=== PATIENT | male | born 1950 | race Caucasian/White ===

== ENCOUNTER → 2019-10-08 18:29 | Outpatient (CLI) | payer MEDICARE, SELFPAY ==
[2019-10-08 19:13] LABS: Chloride 102 mmol/L (98-107); Potassium 4.3 mmoL/L (3.5-5.1); Sodium 141 mmol/L (136-145)
[2019-10-08 19:16] LABS: Alanine Aminotransferase 25 U/L (12-78); Albumin Level 4.2 g/dl (3.5-5.0); Albumin/Globulin Ratio 1.6 (1.1-1.8); Alkaline Phosphatase 42 U/L (38-126); Anion Gap 15.3 mEq/L (5-15); Aspartate Amino Transferase 31 U/L (17-59); Bilirubin,Total 0.5 mg/dl (0.2-1.3); Blood Urea Nitrogen 24 mg/dl (9-20); Carbon Dioxide 28 mmol/L (22.0-30.0); Cholesterol 194 mg/dl (140-200); Estimated Glomerular Filt Rate 67 ml/min (>60); GFR (African American) 81 ML/MIN (>60); Globulin 2.6 g/dL (1.3-3.2); Total Protein,Serum 6.8 g/dl (6.3-8.2); Triglycerides 154 mg/dl (30-150); VLDL Cholesterol 31 mg/dL (0-40)
[2019-10-08 19:17] LABS: Chol/HDL Ratio 3.5 (1-3.5); HDL Cholesterol 55 mg/dl (40-60)
[2019-10-08 19:22] LABS: Calcium 9.2 mg/dl (8.4-10.2)
[2019-10-08 19:34] LABS: T4 (Thyroxine) 7.6 ug/dl (5.53-11.0)
[2019-10-08 19:48] LABS: Thyroid Stimulating Hormone 1.62 uIU/mL (0.465-4.68)
[2019-10-08 19:57] LABS: Glucose 119 mg/dl (74-100)
[2019-10-08 20:09] LABS: Basophils % 0.6 % (0.1-2.0); Eosinophils # 0.4 K/mm3 (0.0-0.4); Eosinophils % 6.8 % (0.1-12.0); Hematocrit 42.2 % (42.0-52.0); Hemoglobin 14.7 g/dL (14.1-18.0); Lymphocytes # 0.9 K/mm3 (0.7-4.5); Mean Corpuscular HGB Conc 34.7 g/dL (31.8-35.4); Mean Corpuscular Hemoglobin 31.7 pg (27.0-31.2); Mean Corpuscular Volume 91.3 fl (80-94); Mean Platelet Volume 9.5 fl (7.4-10.4); Monocytes # 0.3 K/mm3 (0.1-1.0); Monocytes % 5.8 % (1.7-9.3); Neutrophils # 3.8 K/mm3 (1.8-7.8); Neutrophils % 69.8 % (37.0-80.0); Platelet Count 166 K/mm3 (142-424); Red Blood Count 4.63 M/mm3 (4.60-6.20); Red Cell Distribution Width 14.4 % (11.5-17.5); White Blood Count 5.4 K/mm3 (4.8-10.8)
[2019-10-15 13:29] LABS: 1,25 Dihydroxy Vitamin D 44 pg/mL (.); 1,25-Dihydroxy, Vitamin D-2 <10 pg/mL (.); 1,25-Dihydroxy, Vitamin D-3 44 pg/mL (.)
== END ==
PROVIDERS: Visit Provider Emergency Medicine
DX: I10 Essential (primary) hypertension (principal); Z79.899 Other long term (current) drug therapy
CPT/HCPCS: 80053; 80061; 82652; 84436; 84443; 85025

== ENCOUNTER → 2019-10-14 17:39 | Outpatient (CLI) | payer MEDICARE, SELFPAY ==
[2019-10-14 19:49] LABS: Hemoglobin A1C 6.5 % (4.0-6.0)
== END ==
PROVIDERS: Visit Provider Emergency Medicine
DX: R73.9 Hyperglycemia, unspecified (principal)
CPT/HCPCS: 83036

== ENCOUNTER → 2020-02-03 19:13 | Outpatient (CLI) | payer MEDICARE, SELFPAY ==
[2020-02-03 20:47] LABS: Basophils % 0.8 % (0.1-2.0); Eosinophils # 0.2 K/mm3 (0.0-0.4); Eosinophils % 5.1 % (0.1-12.0); Hemoglobin 14.4 g/dL (14.1-18.0); Lymphocytes # 0.9 K/mm3 (0.7-4.5); Lymphocytes % 18.5 % (10-50); Mean Corpuscular HGB Conc 32.8 g/dL (31.8-35.4); Mean Corpuscular Hemoglobin 30.7 pg (27.0-31.2); Mean Corpuscular Volume 93.6 fl (80-94); Mean Platelet Volume 9.7 fl (7.4-10.4); Monocytes # 0.4 K/mm3 (0.1-1.0); Monocytes % 7.7 % (1.7-9.3); Neutrophils # 3.1 K/mm3 (1.8-7.8); Neutrophils % 67.7 % (37.0-80.0); Platelet Count 160 K/mm3 (142-424); Red Cell Distribution Width 13.8 % (11.5-17.5); White Blood Count 4.6 K/mm3 (4.8-10.8)
[2020-02-03 20:50] LABS: Alanine Aminotransferase 20 U/L (12-78); Albumin Level 4.1 g/dl (3.5-5.0); Albumin/Globulin Ratio 1.5 (1.1-1.8); Alkaline Phosphatase 46 U/L (38-126); Anion Gap 12.4 mEq/L (5-15); Aspartate Amino Transferase 30 U/L (17-59); Bilirubin,Total 0.7 mg/dl (0.2-1.3); Blood Urea Nitrogen 25 mg/dl (9-20); Calcium 9.3 mg/dl (8.4-10.2); Carbon Dioxide 27 mmol/L (22.0-30.0); Chloride 105 mmol/L (98-107); Estimated Glomerular Filt Rate 55 ml/min (>60); GFR (African American) 67 ML/MIN (>60); Globulin 2.7 g/dL (1.3-3.2); Glucose 122 mg/dl (74-100); Potassium 4.4 mmoL/L (3.5-5.1); Sodium 140 mmol/L (136-145); Total Protein,Serum 6.8 g/dl (6.3-8.2)
== END ==
PROVIDERS: Visit Provider Emergency Medicine
DX: I10 Essential (primary) hypertension (principal); N19 Unspecified kidney failure
CPT/HCPCS: 80053; 85025

== ENCOUNTER → 2020-06-01 13:36 | Outpatient (CLI) | payer MEDICARE, SELFPAY ==
[2020-06-01 13:53] LABS: Chloride 108 mmol/L (98-107); Potassium 4.5 mmoL/L (3.5-5.1); Sodium 141 mmol/L (136-145)
[2020-06-01 13:56] LABS: Anion Gap 13.5 mEq/L (5-15); Blood Urea Nitrogen 22 mg/dl (9-20); Calcium 9.4 mg/dl (8.4-10.2); Carbon Dioxide 24 mmol/L (22.0-30.0); Estimated Glomerular Filt Rate 75 ml/min (>60); GFR (African American) 90 ML/MIN (>60); Glucose 164 mg/dl (74-100)
== END ==
PROVIDERS: Visit Provider Emergency Medicine
DX: N19 Unspecified kidney failure (principal)
CPT/HCPCS: 80048

== ENCOUNTER → 2020-10-11 06:31 | Outpatient (CLI) | payer MEDICARE, SELFPAY ==
--- NOTE | 2020-10-11 06:32 | CA_ITS ---
APPROVED REPORT Exam: Pharmacologic Technologist: Ruth Mera, Ht: 5 ft 10 in Wt: 222 lbs BSA: 2.18 m2 HR: 51 bpm BP: 130/62 mmHg Medical History Medications: Hydralazine,,,,, Aspirin,,,,, Vitamin B12,,,,, Carvedilol,,,,, TAMSULOSIN,,,,, NiACIN,,,,, FeNOfibrate,,,,, Furosemide,,,,, Potassium Chloride ER,,,,, Amlodipine-Benazepril,,,,, Clonidine HCI,,,,, Stress Test Details Test: LEXISCAN HR Resting HR: 45 bpm Max Heart Rate (APMHR): 153.963288 bpm Max HR Achieved: 76 bpm Target HR (85% APMHR): 130.609006 bpm % of APMHR: 49.67 Recovery HR: 55 bpm BP Resting BP: 130/62 mmHg Max BP: 153/66 mmHg Recovery BP: 110.0/78.0 mmHg ECG Clinical Exercise duration: 04:07 min Highest Stage Achieved: Exercise capacity: 1.0 METs Stress ECG Conclusion Symptoms: SOA noted during Lexiscan infusion. No CP. Arrhythmias/Ectopy: PVC's noted, pretest and during infusion and post test. No v. tach. ST-T Changes: <1.5mm St segment changes. Electronically signed by : Mike Strong, 10/11/2020 18:25:27
--- NOTE | 2020-10-11 06:32 | CA_ITS ---
APPROVED REPORT EXAM: Comprehensive 2D, Doppler, and color-flow Echocardiogram [facility] Consultant: Jami Dubon RT(R) Ht: 5 ft 9 in Wt: 225lbs BSA: 2.17 BP: 111/70 mmHg Indications: SOA, CP, CHF, CAD, HTN, JUAREZ, hyperlipidemia, bradycardia, Abn EKG 2D Dimensions LVOT 2.50 cm (M/F) 1.5-2.5 LVEF (Reyes's) 45.70 % M: 52 - 72 LV Volume 132.90 mL M: 62 - 150 LV Volume Index 61.24 mL/m2 M: 34 - 74 LA Volume 53.90 mL LA Volume Index 24.83 mL/m2 (M/F) 16-34 M-Mode Dimensions RVDd 2.82 cm (0.9-2.6) LA Diam 4.38 cm (1.9-4.0) LVDd 5.96 cm (3.5-5.7) Ao Diam 2.73 cm (2.0-3.7) LVDs 4.41 cm (3.5-5.7) IVSd 0.99 cm (0.6-1.1) PWd 0.99 cm (0.6-1.1) EF (Teich) 50.30% FS 26.00% EDV (Teich) 177.30 mL ESV (Teich) 88.20 mL LV Diastology E Decel Time 207.00 (160-240 msec) E/A Ratio 1.2 MED E' 8.40 (< 7 cm/sec) E'/MED E' Ratio 12.43 (>14) LAT E' 9.00 (<10 cm/sec) E/LAT E' Ratio 11.60 (>14) Mitral Valve MV E Max Edgar. 104.00 (40-130 cm/s) MV A Velocity 88.00 (40-130 cm/s) E/A Ratio 1.19 MV Decel. Time 207.00 (160-240 ms) MV PHT 61.00 ms Left Ventricle Left atrium is mildly enlarged, left ventricle is normal size, mild concentric left ventricular hypertrophy, visually estimated ejection fraction 55% with no regional wall motion abnormality, diastolic parameters are inconclusive. Right Ventricle Right atrium and right ventricle are normal size and contractility. Aortic Valve Aortic valve is thickened and calcified without aortic stenosis or aortic insufficiency. Mitral Valve Mitral valve grossly normal, there is trace mitral regurgitation. Tricuspid Valve Tricuspid grossly normal, there is trace tricuspid regurgitation, tricuspid regurgitation jet velocity is inadequate for calculation of the right ventricular systolic pressure. Pulmonic Valve Pulmonic valve is poorly visualized. Great Vessels Aortic root is normal size. Pericardium No significant pericardial effusion noted. Conclusion 1. Mildly enlarged left atrium, normal left ventricular size, mild concentric left ventricular hypertrophy, visually estimated ejection fraction 55% with no regional wall motion abnormality, diastolic parameters are inconclusive. 2. Thickened and calcified aortic valve without aortic stenosis or aortic insufficiency. 3. Trace mitral and tricuspid regurgitation. 4. No significant pericardial effusion noted. Electronically signed by : Mike Strong, 10/11/2020 21:57:07
--- NOTE | 2020-10-11 06:32 | CA_ITS ---
APPROVED REPORT Oval Or Circular Glass Cutter: CAROL Laterality: Bilateral Study Quality: Adequate Indications: hx of enarderectomy Risk Factors Hypertension: Hyperlipidemia Left endarterectomy 2-3 years ago, SOB, dizziness Doppler Spectral Velocity Analysis ECA (R) 95.80/5.20 cm/s ECA (L) 124.20/10.30 cm/s dICA (R) 101.00/26.90 cm/s dICA (L) 80.90/28.90 cm/s Gallo (R) 77.80/24.70 cm/s Gallo (L) 105.40/31.70 cm/s pICA (R) 90.50/15.70 cm/s pICA (L) 44.10/14.20 cm/s dCCA (R) 90.50/14.40 cm/s dCCA (L) 99.40/22.50 cm/s pCCA (R) 85.50/13.90 cm/s pCCA (L) 144.40/28.90 cm/s Vert (R) 42.40/11.60 cm/s Vert (L) 49.40/16.70 cm/s ICA/CCA 1.12 ICA/CCA 1.06 Findings Duplex evaluation demonstrates stenosis of the right proximal internal carotid artery <20%. Duplex evaluation demonstrates stenosis of the left proximal internal carotid artery <20%. Duplex evaluation demonstrates antegrade flow of the bilateral vertebral arteries. Cardiac arrythmia noted. Conclusion Duplex evaluation demonstrates stenosis of the right proximal internal carotid artery <20%. Duplex evaluation demonstrates stenosis of the left proximal internal carotid artery <20%. Duplex evaluation demonstrates antegrade flow of the bilateral vertebral arteries. Cardiac arrythmia noted. Electronically signed by : Shelia Christiansno, 10/11/2020 16:57:31
--- NOTE | 2020-10-11 06:32 | NM_ITS ---
APPROVED REPORT Exam: Nuclear Stress Test Indication: short of breath..fatigue Patient Location: Outpatient Stress Tech: Ruth Mera [place] Tech:Chelo WittMARÍA RT(R)(N) Ht: 5 ft 9 in Wt: 225 lbs HR: 51 bpm BP: 130/62 mmHg BSA: 2.17 m2 BMI: 33.2 History: short of breath..fatigue Procedure: Patient received a 0.4 mg of intravenous Lexiscan, resting heart rate 51 bpm, resting blood pressure 130/62 mmHg, with Lexiscan maximum heart rate achived was 69 bpm which is Less than 85 % of the maximum predicted heart rate and blood pressure was 124/102 mmHg. With Lexiscan, patient denied any complaint of chest pain. Electrocardiogram Resting electrocardiogram showed sinus rhythm premature ventricular complexes, with Lexiscan there is less than 1.[address] segment depression noted from the baseline EKG. The EKG portion of the Lexiscan is nondiagnostic. Cardiac Stress and Resting SPECT Images: Cardiac Stress and Resting SPECT images were obtained using technetium 99m Myoview 31.8 mCi stress and 10.11 mCi at rest. Gated SPECT for analysis of segmental wall motion and calculation of the ejection fraction also done. Prone images were also obtained. Cardiac stress and resting SPECT images show uniform myocardial activity without segmental perfusion abnormality, computer derived ejection fraction is 44% with no regional wall motion abnormality, however there were frequent premature ventricular complexes present throughout the study that may underestimate the ejection fraction by gated SPECT. Conclusion: 1. The EKG portion of the Lexiscan is nondiagnostic. 2. No scintigraphic evidence of reversible ischemia seen, computer derived ejection fraction is 44% with no regional wall motion abnormality, however there is frequent premature ventricular complexes present throughout the study that may underestimate the ejection fraction. 3. Likely normal Lexiscan Myoview study. Electronically signed by : Mike Strong, 10/11/2020 18:30:01
== END ==
PROVIDERS: PCP Emergency Medicine; Visit Provider Urology
DX: R06.00 Dyspnea, unspecified; I25.10 Atherosclerotic heart disease of native coronary artery without angina pectoris; I49.3 Ventricular premature depolarization; R94.31 Abnormal electrocardiogram [ECG] [EKG]; I65.23 Occlusion and stenosis of bilateral carotid arteries; I11.9 Hypertensive heart disease without heart failure; E78.5 Hyperlipidemia, unspecified; R53.83 Other fatigue; Z72.0 Tobacco use; Z95.5 Presence of coronary angioplasty implant and graft; Z98.890 Other specified postprocedural states
CPT/HCPCS: 78452; 93017; 93306; 93880; A9502; J2785

== ENCOUNTER → 2020-10-18 10:21 | Outpatient (CLI) | payer MEDICARE, SELFPAY ==
[2020-10-18 11:56] LABS: Blood Urea Nitrogen 27 mg/dl (9-20); Estimated Glomerular Filt Rate 67 ml/min (>60); GFR (African American) 81 ML/MIN (>60)
== END ==
PROVIDERS: Visit Provider Surgery
DX: R10.10 Upper abdominal pain, unspecified (principal); Z01.812 Encounter for preprocedural laboratory examination
CPT/HCPCS: 36415; 82565; 84520

== ENCOUNTER → 2020-10-25 09:14 | Outpatient (CLI) | payer MEDICARE, SELFPAY ==
--- NOTE | 2020-10-25 09:14 | CT_ITS ---
PROCEDURE: CT ABDOMEN PELVIS WO CON CLINICAL INDICATION: possible hernia/upper abd pain COMPARISON: No exams were available for comparison TECHNIQUE: Axial images obtained with sagittal and coronal reformats. All CT scans at the facility use one or more dose reduction, viz: automated exposure control, ma/kV adjustment per patient size (including targeted exams where dose is matched to indication, i.e. head), or iterative reconstruction technique. FINDINGS: LOWER THORAX: Coronary artery calcification ABDOMEN & PELVIS: There is a subtle hypodensity in the hepatic dome series 3, image 20 at 7 x 2 mm nonspecific too small to categorize. Liver is otherwise unremarkable. The gallbladder, spleen, left adrenal gland, and pancreas have an unremarkable appearance. 1.8 cm right adrenal nodule is present consistent with an adenoma. There are bilateral renal cysts the largest on the left at 4 cm. No renal or ureteral calculi. No intestinal obstruction or free air. Unremarkable appearing appendix. No evidence of appendicitis or diverticulitis There is a small umbilical hernia containing fat. There is a small central ventral abdominal wall hernia containing fat 8 cm cephalad to the umbilicus. There is mild thickening of the urinary bladder wall nonspecific. Prostate is 4.9 cm slightly enlarged. No acute bony anomalies. IMPRESSION: There is a small ventral abdominal wall hernia 8 cm cephalad to the umbilicus and there is a small umbilical hernia. Both contain fat. Other nonacute findings as described above. Dictated by: Isidro Foote MD 10/25/2020 17:39 Isidro Foote MD in [place] 10/25/2020 17:39
== END ==
PROVIDERS: PCP Emergency Medicine; Visit Provider Surgery
DX: R10.10 Upper abdominal pain, unspecified (principal)
CPT/HCPCS: 74176

== ENCOUNTER → 2021-10-05 09:52 | Outpatient (CLI) | payer MEDICARE, SELFPAY ==
--- NOTE | 2021-10-05 09:53 | CA_ITS ---
FINAL REPORT CLINICAL HISTORY: yennifer hx of Left endarterectomy FINDINGS: An ultrasound of the carotid arteries was performed. Duplex Doppler evaluation with spectral analysis was performed. The peak systolic velocity of the right common carotid artery is 79 cm/s. The peak systolic velocity of the right internal carotid artery is 103 cm/s and end diastolic velocity 21 cm/s. A small amount of plaque is present. The right external carotid artery is patent. The right vertebral artery is patent with antegrade flow. The peak systolic velocity of the left common carotid artery is 132 cm/s. The peak systolic velocity of the left internal carotid artery is 95 cm/s and end diastolic velocity 32 cm/s. A small amount of plaque is present. The left external carotid artery is patent. The left vertebral artery is patent with antegrade flow. IMPRESSION: Less than 50% bilateral carotid stenoses. Bilateral patent vertebral arteries with antegrade flow. Reviewed, Interpreted and Dictated by Beto Urbano MD Transcribed by Elijah Marie Authenticated and [facility]
== END ==
PROVIDERS: PCP Emergency Medicine; Visit Provider Nurse Practitioner Family
DX: I65.23 Occlusion and stenosis of bilateral carotid arteries; R00.1 Bradycardia, unspecified; I25.10 Atherosclerotic heart disease of native coronary artery without angina pectoris; I10 Essential (primary) hypertension; E78.5 Hyperlipidemia, unspecified; E66.9 Obesity, unspecified; R94.31 Abnormal electrocardiogram [ECG] [EKG]; Z95.5 Presence of coronary angioplasty implant and graft; Z98.890 Other specified postprocedural states; Z68.31 Body mass index [BMI] 31.0-31.9, adult
CPT/HCPCS: 93880

== ENCOUNTER → 2021-10-07 14:06 | Outpatient (CLI) | payer MEDICARE, SELFPAY ==
[2021-10-07 13:19] LABS: Basophils # 0.1 K/mm3 (0-0.2); Eosinophils # 0.3 K/mm3 (0.0-0.4); Eosinophils % 4.7 % (0.1-12.0); Hematocrit 41.2 % (42.0-52.0); Hemoglobin 13.7 g/dL (14.1-18.0); Lymphocytes # 0.8 K/mm3 (0.7-4.5); Lymphocytes % 14.9 % (10-50); Mean Corpuscular HGB Conc 33.1 g/dL (31.8-35.4); Mean Corpuscular Hemoglobin 31.4 pg (27.0-31.2); Mean Corpuscular Volume 94.9 fl (80-94); Monocytes # 0.3 K/mm3 (0.1-1.0); Monocytes % 5.9 % (1.7-9.3); Neutrophils # 3.9 K/mm3 (1.8-7.8); Neutrophils % 73.5 % (37.0-80.0); Platelet Count 141 K/mm3 (142-424); Red Blood Count 4.35 M/mm3 (4.60-6.20); Red Cell Distribution Width 14.6 % (11.5-17.5); White Blood Count 5.4 K/mm3 (4.8-10.8)
[2021-10-07 13:23] LABS: Alanine Aminotransferase 24 U/L (12-78); Albumin Level 3.8 g/dl (3.5-5.0); Albumin/Globulin Ratio 1.5 (1.1-1.8); Alkaline Phosphatase 39 U/L (38-126); Anion Gap 10.4 mEq/L (5-15); Aspartate Amino Transferase 34 U/L (17-59); Bilirubin,Total 0.5 mg/dl (0.2-1.3); Blood Urea Nitrogen 20 mg/dl (9-20); Carbon Dioxide 27 mmol/L (22.0-30.0); Chloride 106 mmol/L (98-107); Estimated Glomerular Filt Rate 67 ml/min (>60); GFR (African American) 81 ML/MIN (>60); Globulin 2.5 g/dL (1.3-3.2); Glucose 147 mg/dl (74-100); Potassium 4.4 mmoL/L (3.5-5.1); Sodium 139 mmol/L (136-145); Total Protein,Serum 6.3 g/dl (6.3-8.2)
[2021-10-07 13:41] LABS: Free T4 (Free Thyroxine) 1.43 ng/dl (0.78-2.19)
[2021-10-07 13:54] LABS: Prostate Specific Ag Screen 0.3 ng/ml (0.0-4.0)
== END ==
PROVIDERS: PCP Emergency Medicine; Visit Provider Emergency Medicine
DX: I10 Essential (primary) hypertension (principal); E55.9 Vitamin D deficiency, unspecified; R53.83 Other fatigue; E66.9 Obesity, unspecified; Z68.31 Body mass index [BMI] 31.0-31.9, adult; Z12.5 Encounter for screening for malignant neoplasm of prostate
CPT/HCPCS: 80053; 82306; 84439; 84443; 85025; G0103

== ENCOUNTER → 2021-10-27 06:22 | Outpatient (CLI) | payer MEDICARE, SELFPAY ==
[2021-10-27 15:21] LABS: Basophils # 0.1 K/mm3 (0-0.2); Basophils % 1.1 % (0.1-2.0); Eosinophils # 0.3 K/mm3 (0.0-0.4); Eosinophils % 6.6 % (0.1-12.0); Hematocrit 41.7 % (42.0-52.0); Hemoglobin 13.6 g/dL (14.1-18.0); Lymphocytes % 20.9 % (10-50); Mean Corpuscular HGB Conc 32.7 g/dL (31.8-35.4); Mean Corpuscular Hemoglobin 31.5 pg (27.0-31.2); Mean Corpuscular Volume 96.2 fl (80-94); Mean Platelet Volume 10.7 fl (7.4-10.4); Monocytes # 0.4 K/mm3 (0.1-1.0); Monocytes % 7.2 % (1.7-9.3); Neutrophils # 3.1 K/mm3 (1.8-7.8); Neutrophils % 64.2 % (37.0-80.0); Platelet Count 146 K/mm3 (142-424); Red Blood Count 4.34 M/mm3 (4.60-6.20); Red Cell Distribution Width 14.3 % (11.5-17.5); White Blood Count 4.9 K/mm3 (4.8-10.8)
[2021-10-27 15:45] LABS: Hemoglobin A1C 6.5 % (4.0-6.0)
[2021-10-27 16:10] LABS: Iron 92 ug/dL (49-181)
[2021-10-27 16:19] LABS: Total Iron Binding Capacity 307 ug/dL (261-462)
[2021-10-29 15:13] LABS: Peripheral Smear Review Scanned Result
== END ==
PROVIDERS: PCP Physician Assistant; Visit Provider Physician Assistant
DX: D64.9 Anemia, unspecified (principal); R73.09 Other abnormal glucose
CPT/HCPCS: 83036; 83540; 83550; 85025

== ENCOUNTER → 2022-01-23 10:12 | Outpatient (CLI) | payer MEDICARE, SELFPAY ==
[2022-01-23 11:36] LABS: Chloride 99 mmol/L (98-107); Potassium 4.6 mmoL/L (3.5-5.1); Sodium 140 mmol/L (136-145)
[2022-01-23 11:39] LABS: Alanine Aminotransferase 24 U/L (12-78); Albumin Level 4.2 g/dl (3.5-5.0); Alkaline Phosphatase 46 U/L (38-126); Anion Gap 13.6 mEq/L (5-15); Aspartate Amino Transferase 31 U/L (17-59); Bilirubin,Direct 0.1 mg/dl (0.0-0.4); Bilirubin,Indirect 0.4 mg/dL (0.0-0.9); Bilirubin,Total 0.5 mg/dl (0.2-1.3); Bilirubin,Unconjugated 0.4 mg/dL (0.0-1.1); Blood Urea Nitrogen 27 mg/dl (9-20); Calcium 9.1 mg/dl (8.4-10.2); Carbon Dioxide 32 mmol/L (22.0-30.0); Cholesterol 192 mg/dl (140-200); Estimated Glomerular Filt Rate 55 ml/min (>60); GFR (African American) 66 ML/MIN (>60); Glucose 155 mg/dl (74-100); Total Protein,Serum 6.6 g/dl (6.3-8.2); Triglycerides 132 mg/dl (30-150); VLDL Cholesterol 26 mg/dL (0-40)
[2022-01-23 11:40] LABS: Chol/HDL Ratio 4.3 (1-3.5); HDL Cholesterol 45 mg/dl (40-60)
[2022-01-23 11:51] LABS: Direct LDL Cholesterol 110.94 mg/dL (100-129)
== END ==
PROVIDERS: PCP Emergency Medicine; Visit Provider Physician Assistant
DX: E78.2 Mixed hyperlipidemia (principal); E78.5 Hyperlipidemia, unspecified; I10 Essential (primary) hypertension; I65.23 Occlusion and stenosis of bilateral carotid arteries; I77.9 Disorder of arteries and arterioles, unspecified; R00.1 Bradycardia, unspecified; Z95.5 Presence of coronary angioplasty implant and graft; Z98.890 Other specified postprocedural states
CPT/HCPCS: 36415; 80048; 80061; 80076

== ENCOUNTER → 2022-10-06 08:42 | Outpatient (CLI) | payer MEDICARE, SELFPAY ==
--- NOTE | 2022-10-06 09:02 | XR_ITS ---
FINAL REPORT CLINICAL HISTORY: hip pain, arthritis FINDINGS: LEFT HIP SERIES A single view of the pelvis and two views of the left hip were obtained. There is no acute fracture or dislocation. There is mild degenerative change of bilateral hips. There is mild degenerative change of the lower lumbar spine. There is no soft tissue abnormality. IMPRESSION: No acute bony abnormality. Mild degenerative changes as stated above. Reviewed, Interpreted and Dictated by Félix Remy III, MD Transcribed by Dominga Hamilton Authenticated and [facility]
[2022-10-06 09:50] LABS: Alanine Aminotransferase 30 U/L (12-78); Alkaline Phosphatase 38 U/L (38-126); Aspartate Amino Transferase 34 U/L (17-59); Bilirubin,Direct 0.2 mg/dl (0.0-0.4); Bilirubin,Indirect 0.4 mg/dL (0.0-0.9); Bilirubin,Total 0.6 mg/dl (0.2-1.3); Bilirubin,Unconjugated 0.4 mg/dL (0.0-1.1); Cholesterol 113 mg/dl (140-200); Triglycerides 98 mg/dl (30-150); VLDL Cholesterol 20 mg/dL (0-40)
[2022-10-06 09:51] LABS: Albumin Level 3.8 g/dl (3.5-5.0); Chol/HDL Ratio 2.1 (1-3.5); HDL Cholesterol 54 mg/dl (40-60); Total Protein,Serum 6.3 g/dl (6.3-8.2)
[2022-10-06 10:02] LABS: Direct LDL Cholesterol 46.41 mg/dL (100-129)
== END ==
PROVIDERS: PCP Emergency Medicine; Visit Provider Physician Assistant
DX: E78.2 Mixed hyperlipidemia (principal); I25.10 Atherosclerotic heart disease of native coronary artery without angina pectoris; I65.23 Occlusion and stenosis of bilateral carotid arteries; R00.1 Bradycardia, unspecified; Z95.5 Presence of coronary angioplasty implant and graft; Z98.890 Other specified postprocedural states; M25.552 Pain in left hip
CPT/HCPCS: 73502; 80061; 80076

== ENCOUNTER → 2022-10-31 13:05 | Outpatient (CLI) | payer MEDICARE, SELFPAY ==
[2022-10-31 12:24] LABS: Anion Gap 11.9 mEq/L (5-15); Blood Urea Nitrogen 24 mg/dl (9-20); Calcium 9.3 mg/dl (8.4-10.2); Carbon Dioxide 32 mmol/L (22.0-30.0); Chloride 103 mmol/L (98-107); Estimated Glomerular Filt Rate 55 ml/min (>60); GFR (African American) 66 ML/MIN (>60); Glucose 174 mg/dl (74-100); Potassium 3.9 mmoL/L (3.5-5.1); Sodium 143 mmol/L (136-145)
[2022-10-31 12:36] LABS: Basophils % 0.9 % (0.1-2.0); Eosinophils # 0.3 K/mm3 (0.0-0.4); Eosinophils % 6.1 % (0.1-12.0); Hematocrit 42.2 % (42.0-52.0); Hemoglobin 13.6 g/dL (14.1-18.0); Lymphocytes # 0.9 K/mm3 (0.7-4.5); Lymphocytes % 17.8 % (10-50); Mean Corpuscular HGB Conc 32.1 g/dL (31.8-35.4); Mean Corpuscular Hemoglobin 29.7 pg (27.0-31.2); Mean Corpuscular Volume 92.6 fl (80-94); Mean Platelet Volume 9.7 fl (7.4-10.4); Monocytes # 0.3 K/mm3 (0.1-1.0); Monocytes % 6.1 % (1.7-9.3); Neutrophils # 3.5 K/mm3 (1.8-7.8); Neutrophils % 69.1 % (37.0-80.0); Platelet Count 127 K/mm3 (142-424); Red Blood Count 4.56 M/mm3 (4.60-6.20); Red Cell Distribution Width 13.9 % (11.5-17.5); White Blood Count 5.1 K/mm3 (4.8-10.8)
[2022-10-31 12:54] LABS: Prostate Specific Ag Screen 0.5 ng/ml (0.0-4.0); Thyroid Stimulating Hormone 2.39 uIU/mL (0.465-4.68)
== END ==
PROVIDERS: PCP Emergency Medicine; Visit Provider Emergency Medicine
DX: E78.5 Hyperlipidemia, unspecified (principal); I25.10 Atherosclerotic heart disease of native coronary artery without angina pectoris; I10 Essential (primary) hypertension; Z12.5 Encounter for screening for malignant neoplasm of prostate
CPT/HCPCS: 80048; 84443; 85025; G0103

== ENCOUNTER → 2022-11-07 06:36 | Outpatient (CLI) | payer MEDICARE, SELFPAY ==
--- NOTE | 2022-11-07 | CA_ITS ---
APPROVED REPORT Exam: Pharmacologic Technologist: Ruth Spangler, Ht: 5 ft 10 in Wt: 216 lbs BSA: 2.16 m2 HR: 46 bpm BP: 176/63 mmHg Rhythm: NSR Medical History Medications: Aspirin,,,,, Gabapentin,,,,, HCTZ,,,,, Carvedilol,,,,, Crestor,,,,, Benazepril,,,,, TAMSULOSIN,,,,, Tramadol,,,,, NiACIN,,,,, FeNOfibrate,,,,, Furosemide,,,,, Potassium Chloride ER,,,,, Stress Test Details Test: LEXISCAN Reason for pharmacologic stress test: physical limitation. HR Resting HR: 44 bpm Max Heart Rate (APMHR): 151 bpm Max HR Achieved: 68 bpm Target HR (85% APMHR): 128 bpm % of APMHR: 45 Recovery HR: 54 bpm BP Resting BP: 176.0/63.0 mmHg Max BP: 184.0/55.0 mmHg Recovery BP: 149.0/63.0 mmHg ECG Resting ECG: Sinus bradycardia, first degree AV Block Stress ECG: No change Arrhythmia: PACs, PVCs Clinical Exercise duration: 04:00 min Highest Stage Achieved: Exercise capacity: 1.0 METs Stress ECG Conclusion Symptoms: Nausea Arrhythmias/Ectopy: PVC's/PAC's ST-T Changes: Unremarkable Lexiscan stress test. Myoview images are reported separately. Conclusion: non-diagnostic, patient did not meet target heart rate. Test Summary REST . . . . . . . Resting REST 07:14 . . 44 . 176/ 63 . . Stage 1 . . . . . . . Myoview Injected Stage 1 . . . . . . . Stage held Stage 1 01:00 . . 60 . . . . Stage 1 02:00 . . 56 . . . . Stage 1 03:00 . . 56 . 184/ 55 . . Stage 1 . . . . . . . Stage resumed Stage 1 03:11 . . 59 . 184/ 55 . . Stage 2 00:49 . . 62 . . . Stop exercise at 04:00 RECOVERY 01:00 . . 60 . 130/ 51 . . RECOVERY 02:00 . . 61 . 130/ 51 . . RECOVERY 03:00 . . 55 . 138/ 52 . . RECOVERY 04:00 . . 53 . 138/ 52 . . RECOVERY 04:17 . . 57 . 149/ 63 . . Electronically signed by : Vonda Valverde, 11/07/2022 18:46:21
--- NOTE | 2022-11-07 06:41 | NM_ITS ---
APPROVED REPORT Exam: Nuclear Stress Test Indication: CAD, 1 STENT, HTN, HYPERLIPIDEMIA, ANGINA, SOB, FATIGUE Patient Location: Outpatient Stress Tech: Ruth Mera [place] Tech:MARÍA Vera RT (R)(N)(M) Ht: 5 ft 10 in Wt: 215 lbs HR: 46 bpm BP: 176/63 mmHg BSA: 2.15 m2 Rhythm: Atrial Fibrillation TID: 0.92 BMI: 30.8 History: CAD, 1 STENT, HTN, HYPERLIPIDEMIA, ANGINA, SOB, FATIGUE Procedure: Patient received 0.4 mg of intravenous Lexiscan, resting heart rate 46 bpm, resting blood pressure 176/63 mmHg, with Lexiscan maximum heart rate achieved was 58 bpm which is % of the maximum predicted heart rate and blood pressure was 184/55 mmHg. With Lexiscan, patient denied any complaint of chest pain. Cardiac Stress and Resting SPECT Images: Cardiac Stress and Resting SPECT images were obtained using technetium 99m Myoview 30.2 mCi stress and 10.23 mCi at rest. Resting and stress imaging in supine and prone positions demonstrate a large-sized, moderate, fixed perfusion defect in the entire inferior and mid to distal inferoseptal LV lawrence, involving the inferoapical region. Gated imaging demonstrates mild reduction in global LV systolic function. There is moderate hypokinesis in the inferior and inferoseptal LV lawrence. LVEF is calculated at 48%. Conclusion: Large-sized, moderate, fixed perfusion defect in the entire inferior and mid to distal inferoseptal LV lawrence, involving the inferoapical region. No evidence of reversible ischemia. Gated imaging demonstrates mild reduction in global LV systolic function. There is moderate hypokinesis in the inferior and inferoseptal LV lawrence. LVEF is calculated at 48%. Electronically signed by : Vonda Valverde, 11/07/2022 18:55:54
== END ==
PROVIDERS: PCP Emergency Medicine; Visit Provider Emergency Medicine
DX: I20.8 Other forms of angina pectoris (principal)
CPT/HCPCS: 78452; 93017; A9502; J2785

== ENCOUNTER 2022-12-22 11:40 | Emergency (ER) | payer MEDICARE, SELFPAY ==
[2022-12-22 12:27] VITALS: BP 131/88; PULSE 86; RESP 18; TEMP 36.9; O2SAT 98; BMI 29.5
--- NOTE | 2022-12-22 12:54 | EXP.UTC ---
Discharge Plan Disposition Patient Disposition: Home, Self-Care Condition: Good Prescriptions Prescriptions: New Biofreeze (menthol) 4 % gel 1 applic topical BID PRN (Reason: pain) Qty: 74 0RF methocarbamol 500 mg tablet 500 mg PO BID PRN (Reason: muscle spasm) Qty: 10 0RF No Action furosemide 20 mg tablet 20 mg PO DIRECTED Rx Instructions: takes tue/thur/sat/sun niacin 500 mg tablet 500 mg PO DAILY gabapentin 100 mg capsule 100 mg PO BID Qty: 60 2RF tramadol 50 mg tablet 50 mg PO DAILY Qty: 30 2RF aspirin [Adult Aspirin Regimen] 81 mg tablet,delayed release (DR/EC) 81 mg PO DAILY Qty: 90 2RF carvedilol 25 mg tablet See Rx Instructions .ROUTE .COMPLEX Qty: 180 1RF Dose Instruction: TAKE 1 TABLET BY MOUTH TWICE A DAY WITH MEALS Rx Instructions: TAKE 1 TABLET BY MOUTH TWICE A DAY WITH MEALS tamsulosin 0.4 mg capsule See Rx Instructions .ROUTE .COMPLEX Qty: 180 3RF Dose Instruction: TAKE 2 CAPSULES BY MOUTH EVERY DAY Rx Instructions: TAKE 2 CAPSULES BY MOUTH EVERY DAY rosuvastatin [Crestor] 40 mg tablet 40 mg PO DAILY Qty: 90 1RF fenofibrate nanocrystallized 145 mg tablet See Rx Instructions .ROUTE .COMPLEX Qty: 90 2RF Dose Instruction: TAKE 1 TABLET BY MOUTH EVERY DAY Rx Instructions: TAKE 1 TABLET BY MOUTH EVERY DAY potassium chloride [Klor-Con M20] 20 mEq tablet,ER particles/crystals See Rx Instructions .ROUTE .COMPLEX Qty: 90 3RF Dose Instruction: TAKE 1 TABLET BY MOUTH EVERY DAY Rx Instructions: TAKE 1 TABLET BY MOUTH EVERY DAY benazepril 20 mg tablet See Rx Instructions .ROUTE .COMPLEX Qty: 90 3RF Dose Instruction: TAKE 1 TABLET BY MOUTH EVERY DAY Rx Instructions: TAKE 1 TABLET BY MOUTH EVERY DAY hydrochlorothiazide 25 mg tablet See Rx Instructions .ROUTE .COMPLEX Qty: 90 3RF Dose Instruction: TAKE 1 TABLET BY MOUTH EVERY DAY Rx Instructions: TAKE 1 TABLET BY MOUTH EVERY DAY Referrals Follow up/Referrals: Rob Dwyer MD [Primary Care Provider] - See instructions Activity Restrictions/Add. Instructions Additional Instructions/Restrictions: *Ibuprofen fernando 6 hours with meal as needed for pain/inflammation if you can take it *Not additional anti-inflammatory like motrin, aleve, advil with the above amount of ibuprofen. You can still take Tylenol every 4 hours as needed if you need something else for pain *Ice 20 minutes every 2 hours for the first 48 hours after the initial injury followed by moist heat every 20 minutes 3-4 times a day to affected area *Muscle relaxer every 12 hours as needed for muscle spasms but remember, it WILL cause drowsiness You cannot take it and drive, operate machinery or care for small children. BIofreeze may help with pain and muscle tension *Keep this area active, no movement leads to more stiffness, However take it easy and avoid heavy lifting pushing or pulling *Follow up with you family doctor if no improvement for further treatment Clinical Impressions Clinical Impression: Muscle spasm Instructions Patient Instructions: DI for Muscle Spasm, Methocarbamol Discharge ED Provider: Annemarie Hall [facility] General Stated complaint: Neck and back pain Mode of Arrival: Ambulatory Source of Information: Patient Limitations: No Limitations Time Seen by Provider: 12/22/22 12:54 Description of Symptoms (Recalled from Triage Doc. 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
[2022-12-22 12:56] VITALS: BP 131/88; PULSE 86; RESP 18; TEMP 36.9; O2SAT 98
== END 2022-12-22 13:29 | disposition home or self-care (01) ==
PROVIDERS: Emergency Provider Nurse Practitioner; PCP Emergency Medicine
DX: M54.2 Cervicalgia (principal); M54.6 Pain in thoracic spine; M62.838 Other muscle spasm; I11.0 Hypertensive heart disease with heart failure; I50.9 Heart failure, unspecified; I25.10 Atherosclerotic heart disease of native coronary artery without angina pectoris
CPT/HCPCS: 99204; 99212; G0463

== ENCOUNTER 2023-04-02 09:43 | Outpatient (CLI) | payer MEDICARE, SELFPAY | END 2023-04-02 23:59 | LOC: RT 09:45 | PROVIDERS: PCP Nurse Practitioner Family; Visit Provider Nurse Practitioner | DX: I50.20 Unspecified systolic (congestive) heart failure (principal); R00.1 Bradycardia, unspecified; R53.83 Other fatigue; Z95.5 Presence of coronary angioplasty implant and graft | CPT/HCPCS: 93270 ==

== ENCOUNTER 2023-04-11 12:30 | Outpatient (CLI) | payer MEDICARE, SELFPAY ==
--- NOTE | 2023-04-11 12:37 | CA_ITS ---
APPROVED REPORT EXAM: Comprehensive 2D, Doppler, and color-flow Echocardiogram Plating Tank Operator Apprentice: Shila Mendez RVT Ht: 5 ft 10 in Wt: 214lbs BSA: 2.15 BP: 135/57 mmHg Indications: CM EF OF 48% ON STRESS TEST 11/07,BRADYCARDIA,HTN,PALPS,HLD,FATIGUE 2D Dimensions LA Volume 80.20 mL LA Volume Index 37.30 mL/m2 (M/F) 16-34 M-Mode Dimensions RVDd 3.30 cm (0.9-2.6) LA Diam 4.66 cm (1.9-4.0) LVDd 5.58 cm (3.5-5.7) LVDs 4.19 cm (3.5-5.7) IVSd 1.25 cm (0.6-1.1) PWd 0.58 cm (0.6-1.1) EF (Teich) 48.80% FS 24.90% EDV (Teich) 152.40 mL TAPSE 2.87 (<1.7) ESV (Teich) 78.10 mL LV Diastology E Decel Time 293 (160-240 msec) E/A Ratio 0.6 Aortic Valve MARQUIS Index 1.66 cm2/m2 AoV Peak Edgar. 206.0 (50-130 cm/s) AI PHT 713.00 ms AO Peak GR. 16.90 mmHg AO Mean GR. 8.40 (<5 mmHg) AO VTI 37.7 (18-25 cm) MARQUIS (VTI) 3.65 (2.5-4.5 cm2) Mitral Valve MV E Max Edgar. 52.0 (40-130 cm/s) MV A Velocity 92.0 (40-130 cm/s) E/A Ratio 0.57 MV PHT 86.0 ms Pulmonary Valve PV Peak Velocity 86.0 (50-150 cm/s) Left Ventricle The left ventricle is normal size. Left ventricular systolic function is mildly decreased. There is increased LV wall thickness. There is moderate hypokinesis of the inferior, inferoseptal, and inferolateral LV lawrence. Grade 1 diastolic dysfunction is present. LVEF is 45%. Right Ventricle The right ventricle is mildly dilated. The right ventricular systolic function is normal. Atria The left atrium size is normal. The right atrium size is normal. There is no Doppler evidence of interatrial shunt. Aortic Valve The aortic valve is mildly thickened. There is no aortic valvular stenosis. Mild aortic regurgitation. Mitral Valve The mitral valve leaflets are mildly thickened. No evidence of mitral valve stenosis. Trace mitral regurgitation. Tricuspid Valve The tricuspid valve leaflets are thin and pliable. Trace tricuspid regurgitation. There is insufficient TR jet to estimate RVSP. Pulmonic Valve The pulmonary valve is normal in structure. Trace pulmonic regurgitation. Great Vessels The aortic root is normal in size. The ascending aorta is normal in size. IVC is normal in size and collapses >50% with inspiration. Pericardium Trivial pericardial effusion. Other Information Study Quality: Fair Conclusion Mildly reduced LV systolic function (LVEF 45%). Moderate hypokinesis of the inferior, inferoseptal, and inferolateral LV lawrence. Mildly dilated RV with normal RV function. No significant valvular stenosis or regurgitation. Trivial pericardial effusion. Electronically signed by : Vonda Vavlerde MD 04/15/2023 17:21:41
== END 2023-04-11 23:59 ==
LOC: RT 12:31
PROVIDERS: PCP Nurse Practitioner Family; Visit Provider Physician Assistant
DX: I50.20 Unspecified systolic (congestive) heart failure (principal); R00.1 Bradycardia, unspecified; R53.83 Other fatigue; Z95.5 Presence of coronary angioplasty implant and graft; R94.31 Abnormal electrocardiogram [ECG] [EKG]
CPT/HCPCS: 93306

== ENCOUNTER 2023-11-05 10:00 | Outpatient (CLI) | payer MEDICARE, SELFPAY ==
[2023-11-05 20:09] LABS: Basophils % 0.8 % (0.1-2.0); Eosinophils # 0.3 K/mm3 (0.0-0.4); Eosinophils % 7.1 % (0.1-12.0); Lymphocytes # 0.8 K/mm3 (0.7-4.5); Lymphocytes % 16.5 % (10-50); Mean Corpuscular HGB Conc 32.5 g/dL (31.8-35.4); Mean Corpuscular Hemoglobin 31.8 pg (27.0-31.2); Mean Corpuscular Volume 98.1 fl (80-94); Mean Platelet Volume 10.6 fl (7.4-10.4); Monocytes # 0.3 K/mm3 (0.1-1.0); Monocytes % 5.6 % (1.7-9.3); Neutrophils # 3.3 K/mm3 (1.8-7.8); Neutrophils % 70.1 % (37.0-80.0); Platelet Count 118 K/mm3 (142-424); Red Blood Count 4.08 M/mm3 (4.60-6.20); Red Cell Distribution Width 14.6 % (11.5-17.5); White Blood Count 4.7 K/mm3 (4.8-10.8)
[2023-11-05 20:19] LABS: Creatinine,Urine Random 91 mg/dL (Not Estab.)
[2023-11-05 20:23] LABS: Alanine Aminotransferase 24 U/L (12-78); Albumin Level 3.7 g/dl (3.5-5.0); Albumin/Globulin Ratio 1.4 (1.1-1.8); Alkaline Phosphatase 37 U/L (38-126); Anion Gap 9.5 mEq/L (5-15); Aspartate Amino Transferase 31 U/L (17-59); Bilirubin,Total 0.7 mg/dl (0.2-1.3); Blood Urea Nitrogen 29 mg/dl (9-20); Calcium 9.4 mg/dl (8.4-10.2); Carbon Dioxide 31 mmol/L (22.0-30.0); Chloride 104 mmol/L (98-107); Chol/HDL Ratio 2.6 (1-3.5); Cholesterol 118 mg/dl (140-200); Estimated Glomerular Filt Rate 60 ml/min (>60); GFR (African American) 72 ML/MIN (>60); Globulin 2.7 g/dL (1.3-3.2); Glucose 158 mg/dl (74-100); HDL Cholesterol 45 mg/dl (40-60); Potassium 4.5 mmoL/L (3.5-5.1); Sodium 140 mmol/L (136-145); Total Protein,Serum 6.4 g/dl (6.3-8.2); Triglycerides 105 mg/dl (30-150); VLDL Cholesterol 21 mg/dL (0-40)
[2023-11-05 20:29] LABS: Microalbumin < 6.000 mg/L (0-16.7)
[2023-11-05 20:34] LABS: Direct LDL Cholesterol 43.01 mg/dL (100-129)
[2023-11-05 20:42] LABS: 25-OH Vitamin D, Total 25.6 ng/mL (30-100); Hemoglobin A1C 6.8 % (4.0-6.0)
[2023-11-05 20:54] LABS: Prostate Specific Ag Screen 0.4 ng/ml (0.0-4.0); Thyroid Stimulating Hormone 2.45 uIU/mL (0.465-4.68)
== END 2023-11-05 23:59 | disposition home or self-care (01) ==
LOC: LAB.DROPOF 11-06 14:48
PROVIDERS: PCP Family Medicine; Visit Provider Family Medicine
DX: E11.9 Type 2 diabetes mellitus without complications (principal); E55.9 Vitamin D deficiency, unspecified; R53.83 Other fatigue; E78.5 Hyperlipidemia, unspecified; E07.9 Disorder of thyroid, unspecified; I25.10 Atherosclerotic heart disease of native coronary artery without angina pectoris; N19 Unspecified kidney failure; N40.0 Benign prostatic hyperplasia without lower urinary tract symptoms
CPT/HCPCS: 80050; 80053; 80061; 82043; 82306; 82570; 83036; 84443; 85025; G0103

== ENCOUNTER 2023-11-12 11:38 | Outpatient (CLI) | payer MEDICARE, SELFPAY ==
[2023-11-12 11:44] VITALS: BMI 31.6
[2023-11-12 11:56] VITALS: BP 129/78; PULSE 49; RESP 18; O2SAT 97
[2023-11-12 12:15] LABS: POC Glucose,Bedside 173 (70-110)
[2023-11-12 12:20] VITALS: BP 162/78; PULSE 46; RESP 18; O2SAT 99
[2023-11-12] MEDS: NITROGLYCERIN 0.4MG SL TABLET 0.8 MG SL (12:20)
[2023-11-12 12:25] VITALS: BP 144/83; PULSE 50; RESP 18; O2SAT 98
[2023-11-12 12:28] VITALS: BP 109/46; PULSE 51; RESP 18; O2SAT 97
[2023-11-12 12:33] VITALS: BP 129/63; PULSE 48; RESP 18; O2SAT 98
--- NOTE | 2023-11-12 12:38 | PC.NURSE ---
1220- To CT, 162/78. Nitro 0.8mg SL given per protocol 1225-5 min post Nitor BP 144/83 1228- CT complete, VSS, no C/O or S/S 1233- Arrived to post, VSS, no C/O
[2023-11-12] MEDS: IOPAMIDOL-370 (76%);100ML BOTTLE 85 ML IV (13:17)
[2023-11-12] MEDS: 0.9 % SODIUM CHLORIDE 50 ML VIAL IV (13:17)
[2023-11-12] MEDS: SODIUM CHLORIDE 0.9% 10ML SYR (RAD ONLY) 10 ML IV (13:17)
== END 2023-11-12 12:43 | disposition home or self-care (01) ==
PROVIDERS: PCP Family Medicine; Visit Provider Family Medicine
DX: R06.09 Other forms of dyspnea; I50.20 Unspecified systolic (congestive) heart failure; M62.838 Other muscle spasm; R94.30 Abnormal result of cardiovascular function study, unspecified; E11.9 Type 2 diabetes mellitus without complications; Z79.84 Long term (current) use of oral hypoglycemic drugs; I20.89 Other forms of angina pectoris
CPT/HCPCS: 75574; 82962; Q9967

== ENCOUNTER 2023-11-14 08:59 | Outpatient (CLI) | payer MEDICARE, SELFPAY ==
--- NOTE | 2023-11-14 09:05 | XR_ITS ---
FINAL REPORT CLINICAL HISTORY: lt hip pain COMPARISON: None FINDINGS: LEFT HIP: Two views of the left hip with an AP view of the pelvis demonstrate no acute fracture or dislocation. The femoral heads have normal smooth contours. The hip joint space is preserved. There is sclerosis and degenerative cyst formation in the symphysis pubis. The visualized bony structures are well aligned. No soft tissue abnormality is seen. IMPRESSION: No acute bony abnormality. Sclerosis and degenerative cyst formation in the symphysis pubis. Reviewed, Interpreted and Dictated by Beto Urbano MD Transcribed by Ana Luisa Chambers Authenticated and [facility]
--- NOTE | 2023-11-14 09:05 | XR_ITS ---
FINAL REPORT CLINICAL HISTORY: rt knee pain COMPARISON: None FINDINGS: 3 views of the right knee were obtained. There is no acute fracture or dislocation. There is moderate narrowing of the medial compartment and patellofemoral joint spaces. Osteophyte formation is noted along the joint margins. There is soft tissue edema anterior to the patella and patellar tendons. IMPRESSION: Osteoarthritis without acute bony abnormality. Reviewed, Interpreted and Dictated by Beto Urbano MD Transcribed by Ana Luisa Chambers Authenticated and [facility]
== END 2023-11-14 23:59 | disposition home or self-care (01) ==
LOC: RAD 09:01
PROVIDERS: PCP Family Medicine; Visit Provider Family Medicine
DX: M25.552 Pain in left hip (principal); M25.561 Pain in right knee
CPT/HCPCS: 73502; 73562

== ENCOUNTER 2025-01-30 11:59 | Outpatient (CLI) | payer MEDICARE, SELFPAY ==
[2025-01-30 14:54] LABS: Hematocrit 39.4 % (42.0-52.0); Hemoglobin 13.2 g/dL (14.1-18.0); Immature Granulocytes % 0.7 %; Mean Corpuscular HGB Conc 33.5 g/dL (31.8-35.4); Mean Corpuscular Hemoglobin 30.3 pg (27.0-31.2); Mean Corpuscular Volume 90.6 fl (80-94); Nucleated Red Blood Cells % 0 %; Platelet Count 120 K/mm3 (142-424); Red Blood Count 4.35 M/mm3 (4.60-6.20); Red Cell Distribution Width-SD 43.0 fL; White Blood Count 4.5 K/mm3 (4.8-10.8)
[2025-01-30 15:10] LABS: Alanine Aminotransferase 27 U/L (12-78); Albumin Level 4.2 g/dl (3.5-5.0); Albumin/Globulin Ratio 1.4 (1.1-1.8); Alkaline Phosphatase 46 U/L (38-126); Anion Gap 11.0 mEq/L (5-15); Aspartate Amino Transferase 36 U/L (17-59); Bilirubin,Total 0.8 mg/dl (0.2-1.3); Blood Urea Nitrogen 32 mg/dl (9-20); Calcium 9.4 mg/dl (8.4-10.2); Carbon Dioxide 29 mmol/L (22.0-30.0); Chloride 100 mmol/L (98-107); Cholesterol 106 mg/dl (140-200); Creatinine,Serum 1.30 mg/dl (0.66-1.25); Estimated Glomerular Filt Rate 54 ml/min (>60); GFR (African American) 66 ML/MIN (>60); Globulin 2.9 g/dL (1.3-3.2); Glucose 164 mg/dl (74-100); HDL Cholesterol 46 mg/dl (40-60); Potassium 4.0 mmoL/L (3.5-5.1); Sodium 136 mmol/L (136-145); Total Protein,Serum 7.1 g/dl (6.3-8.2); Triglycerides 111 mg/dl (30-150)
[2025-01-30 15:14] LABS: Hemoglobin A1C 6.9 % (4.0-6.0)
[2025-01-30 15:27] LABS: 25-OH Vitamin D, Total 32.8 ng/mL (30-100)
[2025-01-30 15:42] LABS: Thyroid Stimulating Hormone 2.66 uIU/mL (0.465-4.68)
--- OUTSIDE RECORDS SUMMARY | 2025-02-02 12:01 | XMS_ITS | Clinical Summary ---
Author Organization Healthcare Address [address] [place] [address] Care Team Providers Care Maintenance Planner Name Role Phone Pcp, No Primary Care Provider Unavailabl e Social History Tobacco Use Types Packs/Day Years Used Date Smoking Tobacco: Never Assessed Sex and Gender Information Value Date Recorded Sex Assigned at Not on file Legal Sex Male 7:06 PM EDT Gender Identity Not on file Sexual Orientation Not on file Plan of Treatment Health Maintenance Due Date Last Done Comments [facility]-Depression Screening 1950 [facility]-Infant/Child/Adol SDOH Screenings 1950 [facility]- SDOH Screenings 1970 [facility]-Adult SDOH Screenings 1970 [facility]-DTaP,Tdap,and Td Vaccines (1 - Tdap) 11/14/1971 CT Colonography 1997 Colonoscopy 1997 FIT-DNA 1997 FIT 1997 FOBT 1997 Sigmoidoscopy 1997 [facility]-Colorectal Cancer Screening 1997 [id number] Vaccine ( season) 2024 07/12/2020, 06/09/2020 [facility]-Influenza Vaccine (#1) 11/24/202412/01, 03/10/2022, 04/18/2021, Additional history exists [facility]-RSV Vaccine: 60+ Years or (1 - 1-dose 75+ series) 11/14/2027 [facility]-Pneumococcal Vaccine: 50+ Years Completed 12/01/2022, 12/22/2016 [facility]-Zoster Vaccines Completed 12/01/2022, 0 HPV Vaccines Aged Out No longer eligi ble based on patient's age to complete this topic [facility]-HIB Vaccines Aged Out No longer e ligible based on patient's age to complete this topic [facility]-Hepatitis A Vaccines Aged Out No longer eligible based on patient's age to complete this topic [facility]-IPV Vaccines Aged Out No longer e ligible based on patient's age to complete this topic [facility]-Rotavirus Vaccines Aged Out No lo nger eligible based on patient's age to complete this topic Insurance [employer] Care Teams Maintenance Planner Relationship Specialty Start Date End Date Pcp, [place] [address] PCP - General Family Medicine 11/11/23
--- OUTSIDE RECORDS SUMMARY | 2025-02-02 12:01 | XMS_ITS | Clinical Summary ---
[facility] Address [address] [place] [id number] Care Team Providers Care Tire Fabric Impregnating Range Tender Name Role Phone Alessandro Oliva MD Primary Care Provider [phone] Allergies Active Allergy Reactions Criticality Noted Date Comments Statins Other (See Comments) Low 05/23/2018 Elevated Blood pressure Medications amLODIPine-george zepril (LOTREL) 10-20 MG per capsule Take 1 capsule by mouth Daily. 1 05/07/2018 Active carvedilol (COREG) 12.5 MG tablet Take 12.5 mg by mouth 2 (Two) Times a Day. 1 05/07/2018 Active CloNIDine (CATAPRES) 0.2 MG tablet Take 0.2 mg by mouth 2 (Two) Times a Day. 1 05/07/2018 Active fenofibrate (TRICOR) 145 MG tablet Take 145 mg by mouth Daily. 1 05/07/2018 Active furosemide (LASIX) 20 MG tablet Take 20 mg by mouth Daily. 1 05/07/2018 Active KLOR-CON 20 MEQ CR tablet Take 20 mEq by mouth Daily. 1 05/07/2018 Active tamsulosin (FLOMAX) 0.4 MG capsule 24 hr capsule Take 2 capsules by mouth Daily. 1 05/07/2018 Active hydrALAZINE (APRESOLINE) 50 MG tablet Take 50 mg by mouth 3 (Three) Times a Day. Active niacin 500 MG tablet Take 500 mg by mouth Every Night. Active aspirin 81 MG chewable tablet Chew 81 mg Daily. Active clopidogrel (PLAVIX) 75 MG tablet Take 1 tablet by mouth Daily. 30 tablet 3 06/23/2018 Active Active Problems Problem Noted Date Diagnosed Date S/P carotid endarterectomy 08/01/2018 Hypertension 06/21/2018 Hyperlipidemia 06/21/2018 BPH (benign prostatic hyperplasia) 06/21/2018 Tobacco abuse 06/21/2018 Stenosis of left carotid artery 05/23/2018 Overview (06/21/2018): S/p Left carotid endarterectomy with pericardial patch by Dr. Meade 06/21/18 Family History Medical History Relation Name Comments Hypertension Father Heart failure Mother Hypertension Mother Relation Name Status Comments Father Alive Mother Social History Tobacco Use Types Packs/Day Years Used Date Smoking Tobacco: Never Smokeless Tobacco: Current Chew Comments:3 pouches of chew/w eeek Alcohol Use Standard Drinks/Week Comments Yes 0 (1 standard drink = 0.6 oz pur e alcohol) rare AUDIT-C Answer Date Recorded Frequency of Alcohol Consumption Never 05/23/2018 Average Number of Drinks Not on file 019 Frequency of Binge Drinking Not on file 04/27 Abuse Screen Answer Date Recorded Unsafe at Home or Work/School Not on file Feels Threatened by Someone? Not on file 02/2023 Does Anyone Keep You from Co ntacting Others or Doint Things Outside the Home? Not on file 01/04/2023 Physical Sign of Abuse Present Not on file 1 Housing Stability Answer Date Recorded Current Living Arrangements Not on file 12/24 Potentially Unsafe Housing Conditions Not on june e 01/04/2023 Family and Community Support Answer Onesimo e Recorded Help with Day-to-Day Activities Not on file 01/04/2023 Lonely or Isolated Not on file 01/04/2023 Employment Answer Date Recorded Do you want help finding or keeping work or a jasmien b? Not on file 01/04/2023 Disabilities Answer Date Recorded Concentrating, Remembering, or Making Decisions Difficulty Not on file 01/04/2023 Doing Errands Independently Difficulty Not on fi le 01/04/2023 Education Answer Date Recorded Help with school or training? Not on file Preferred Language Not on file 01/04/2023 Sex and Gender Information Value Date Recorded Sex Assigned at Not on file Legal Sex Male 10:48 AM EDT Gender Identity Not on file Sexual Orientation Not on file Occupation Industry Job Start Date Job End Date Not on file Not on file Not on file Not on file Last Filed Vital Signs Vital Sign Reading Time Taken Comments Blood Pressure 130/70 07/31/2018 8:34 AM EDT Pulse 53 07/31/2018 8:34 AM EDT Temperature 36.9 C (98.4 F) 06/22/2018 8:00 AM EDT Respiratory Rate 16 06/22/2018 8:00 AM EDT Oxygen Saturation 98% 07/31/2018 8:34 AM EDT Inhaled Oxygen Concentration - - Weight 101 kg (223 lb) 07/31/2018 8:34 AM EDT Height 177.8 cm (5' 10 ) 07/31/2018 8:34 AM EDT Body Mass Index 32 07/31/2018 8:34 AM EDT Plan of Treatment Health Maintenance Due Date Last Done Comments LIPID PANEL 1952 TDAP/TD VACCINES (1 - Tdap) 11/14/1971 COLOGUARD 1997 COLON CANCER SCREENING 5 YEAR SIGMOIDOSCOPY 1997 COLONOSCOPY [address] CANCER SCREENING 1997 CT COLONOGRAPHY 1997 FECAL OCCULT BLOOD TEST 1997 FIT Testing (1 year) 1997 Pneumococcal Vaccine 50+ (1 of 1 - PCV) 2002 ZOSTER VACCINE (1 of 2) 2002 ANNUAL PHYSICAL 01/01/2018 HEPATITIS C SCREENING 01/01/2018 INFLUENZA VACCINE 10/24/2024 COVID-19 Vaccine ( season) 2024 AAA SCREEN ONCE Completed 06/07/2018 Medical Devices Implanted Type Area Icicle Machine Operator Device Identifier Shelf Expiration Date Model / Serial / Lot Ptc Vascuguard 1x6cm - [id number] Implanted:Qty: 1 on 06/21/2018 by Jon [facility]ade MD at [facility] Implant Left: Carotid SYNOVIS 11/23/2022 [id number] / / [id number] Coronary Stent-10/27/2014 Implanted:06/2014 by Bong Rueda MD (Quantity not on file) [employer] / / [id number] Description:x1 to LAD [facility] Advance Directives * CPR (Attempt to Resuscitate) (Latest Code Status on File) Date Activated Date Inactivated Comments 06/21/2018 12:38 PM 06/22/2018 3:35 PM Question Answer Comments Code Status (Patient has no pulse and is not breathing): CPR (Attempt to Resuscitate) Medical Interventions (Patie nt has pulse or is breathing): Full Care Teams Tire Fabric Impregnating Range Tender Relationship Specialty Start Date End Date Alessandro Oliva MD [address] [place] [address] PCP - General Family Medicine 09/14/17
== END 2025-01-30 23:59 ==
LOC: LAB.DROPOF 02-02 11:59
PROVIDERS: PCP Student in an Organized Health Care Education/Training Program; Visit Provider Family Medicine
DX: E55.9 Vitamin D deficiency, unspecified (principal); E11.9 Type 2 diabetes mellitus without complications; I10 Essential (primary) hypertension; E78.5 Hyperlipidemia, unspecified; E66.9 Obesity, unspecified; Z12.5 Encounter for screening for malignant neoplasm of prostate
CPT/HCPCS: 80053; 80061; 82306; 83036; 84443; 85025; G0103

== ENCOUNTER 2025-02-05 08:33 | Outpatient (CLI) | payer MEDICARE, SELFPAY ==
--- OUTSIDE RECORDS SUMMARY | 2025-02-05 08:35 | XMS_ITS | Clinical Summary ---
[facility] [address] [place] [id number] Care Team Providers Care Payer Specialist Name Role Phone Alessandro Oliva MD Primary Care Provider [phone] Allergies Active Allergy Reactions Criticality Noted Date [...] help finding or keeping work or a jasmine b? Not on file 01/04/2023 Disabilities Answer [...] Completed 06/07/2018 Medical Devices Implanted Type Area Senior Landscape Architect Device Identifier Shelf Expiration Date Model / Serial / Lot Ptc Vascuguard 1x6cm - [id number] Implanted:Qty: 1 on 06/21/2018 by Jon Meade MD at [facility] Implant Left: Carotid SYNOVIS 11/23/2022 [id number] / / [id number] Coronary Stent-10/27/2014 Implanted:06/2014 by Bong Rueda MD (Quantity not on file) [employer] / / [id number] Description:x1 to LAD Insurance [facility] Advance Directives * CPR (Attempt to Resuscitate) (Latest Code Status on File) Date Activated Date Inactivated Comments 06/21/2018 12:38 PM 06/22/2018 3:35 PM Question Answer Comments Code Status (Patient has no pulse and is not breathing): CPR (Attempt to Resuscitate) Medical Interventions (Patie nt has pulse or is breathing): Full Care Teams Payer Specialist Relationship Specialty Start Date End Date Alessandro Oliva MD [address] [place] [address] PCP - General Family Medicine 09/14/17
--- OUTSIDE RECORDS SUMMARY | 2025-02-05 08:35 | XMS_ITS | Clinical Summary ---
Author Organization [facility] Address [address] [place] [address] Care Team Providers Care Cash Register Repairer Name Role Phone Pcp, No Primary Care [...] 1997 Sigmoidoscopy 1997 [facility]-Colorectal Cancer Screening 1997 [id number] Vaccine ( season) 2024 07/12/2020, 06/09/2020 [facility]-Influenza [...] this topic Insurance [employer]ARE Care Teams Cash Register Repairer Relationship Specialty Start Date End Date Pcp, [place] [address] PCP - General Family Medicine 11/11/23
--- NOTE | 2025-02-05 08:36 | XR_ITS ---
FINAL REPORT TECHNIQUE: Right shoulder 3 views CLINICAL HISTORY: right shoulder pain COMPARISON: None FINDINGS: RIGHT SHOULDER: 3 views show no evidence of an acute, displaced fracture or dislocation of the visualized bony architecture. Moderate degenerative joint disease is present, particularly involving the glenohumeral or acromioclavicular joints. IMPRESSION: Degenerative changes. No acute bony abnormality. Reviewed, Interpreted and Dictated by Giles Belcher MD Transcribed by Flora Loaiza Authenticated and [facility]
== END 2025-02-05 23:59 | disposition home or self-care (01) ==
LOC: RAD 08:34
PROVIDERS: PCP Family Medicine; Visit Provider Family Medicine
DX: M19.011 Primary osteoarthritis, right shoulder
CPT/HCPCS: 73030

== ENCOUNTER 2025-03-05 10:49 | Outpatient (CLI) | payer MEDICARE, SELFPAY | END 2025-03-05 23:59 | disposition home or self-care (01) | LOC: RT 10:49 | PROVIDERS: PCP Family Medicine; Visit Provider Physician Assistant | DX: I48.91 Unspecified atrial fibrillation (principal) | CPT/HCPCS: 93270 ==

== ENCOUNTER 2025-03-13 09:00 | Outpatient (CLI) | payer MEDICARE, SELFPAY ==
--- OUTSIDE RECORDS SUMMARY | 2025-03-13 09:03 | XMS_ITS | Clinical Summary ---
Author Organization [facility] Address [address] [place] [address] Care Team Providers Care Automatic Thread Winder Name Role Phone Pcp, No Primary Care [...] 1997 Sigmoidoscopy 1997 [facility]-Colorectal Cancer Screening 1997 [id number] Vaccine ( season) 2024 07/12/2020, 06/09/2020 [facility]-Influenza Vaccine (#1) 11/24/202412/01, 03/10/2022, 04/18/2021, Additional history exists [facility]-RSV Vaccine: 60+ Years or (1 - 1-dose 75+ series) 11/14/2027 [facility]-Pneumococcal Vaccine: 50+ Years Completed 12/01/2022, 12/22/2016 [facility]-Zoster Vaccines Completed 12/01/2022, 0 HPV Vaccines (No Doses Required) Completed [facility]-HIB Vaccines Aged Out No longer e [...] this topic Insurance [employer] Care Teams Automatic Thread Winder Relationship Specialty Start [place] [address] PCP - General Family Medicine 11/11/23
--- OUTSIDE RECORDS SUMMARY | 2025-03-13 09:03 | XMS_ITS | Clinical Summary ---
[facility] [address] [place] [id number] Care Team Providers Care Yard Clerk Name Role Phone Alessandro Oliva MD Primary Care Provider [phone] Allergies Active Allergy Reactions Criticality Noted Date [...] Completed 06/07/2018 Medical Devices Implanted Type Area Water Softener Servicer Device Identifier Shelf Expiration Date Model / Serial / Lot Ptc Vascuguard 1x6cm - [id number] Implanted:Qty: 1 on 06/21/2018 by Jon Meade MD at [facility] Implant Left: Carotid SYNOVIS 11/23/2022 [id number] / / [id number] Coronary Stent-10/27/2014 Implanted:06/2014 by Bong Rueda MD (Quantity not on file) [employer] / / [id number] Description:x1 to LAD Insurance [facility] Advance Directives * CPR (Attempt to Resuscitate) (Latest Code Status on File) Date Activated Date Inactivated Comments 06/21/2018 12:38 PM 06/22/2018 3:35 PM Question Answer Comments Code Status (Patient has no pulse and is not breathing): CPR (Attempt to Resuscitate) Medical Interventions (Patie nt has pulse or is breathing): Full Care Teams Yard Clerk Relationship Specialty Start Date End Date Alessandro Oliva MD [address] [place] [address] PCP - General Family Medicine 09/14/17
--- NOTE | 2025-03-13 09:30 | CA_ITS ---
APPROVED REPORT EXAM: Comprehensive 2D, Doppler, and color-flow Echocardiogram Handle Rounder Operator: Jami Dubon RT(R) Ht: 5 ft 10 in Wt: 211lbs BSA: 2.14 BP: 142/62 mmHg Indications: dyspnea on exertion, AFIB, HFrEF 2D Dimensions LVEF (Reyes's) 42.10 % M: 52 - 72 LV Volume 140.70 mL M: 62 - 150 LV Volume Index 65.7 mL/m2 M: 34 - 74 LA Volume 36.00 mL LA Volume Index 16.82 mL/m2 (M/F) 16-34 EF AP4 37.40 % EF AP2 45.5 % EF BP 42.1 % GL Strain -16.3 % M-Mode Dimensions RVDd 3.07 cm (0.9-2.6) LA Diam 3.88 cm (1.9-4.0) LVDd 5.30 cm (3.5-5.7) LVDs 4.37 cm (3.5-5.7) IVSd 0.88 cm (0.6-1.1) PWd 0.97 cm (0.6-1.1) EF (Teich) 36.20% FS 17.50% EDV (Teich) 135.30 mL ESV (Teich) 86.30 mL Aortic Valve MARQUIS Index 1.09 cm2/m2 AoV Peak Edgar. 159.0 (50-130 cm/s) AO Peak GR. 10.10 mmHg AO Mean GR. 5.00 (<5 mmHg) AO VTI 33.5 (18-25 cm) MARQUIS (VTI) 2.38 (2.5-4.5 cm2) Left Ventricle The left ventricle is normal size. Left ventricular systolic function is mildly reduced. There is normal left ventricular wall thickness. There is moderate hypokinesis of the inferior, inferoseptal, and inferolateral LV lawrence. The left ventricular diastolic function is normal. LVEF is 55% Right Ventricle The right ventricle is mildly dilated. The right ventricular systolic function is normal. Atria The left atrium size is normal. The right atrium size is normal. There is no color Doppler evidence of interatrial shunt. Aortic Valve The aortic valve opens well. There is no hemodynamically significant aortic valvular stenosis. Trace aortic regurgitation is present. Mitral Valve The mitral valve is normal in structure. No evidence of mitral valve stenosis. Mild mitral regurgitation is present. Tricuspid Valve The tricuspid valve leaflets are thin and pliable. Mild tricuspid regurgitation. RVSP is 20-25 mmHg. Pulmonic Valve The pulmonary valve is grossly normal in structure. Trace pulmonic valve regurgitation is present. Great Vessels The aortic root is normal in size. IVC is normal in size and collapses >50% with inspiration. Pericardium There is no pericardial effusion. Other Information Study Quality: Fair Conclusion Mildly reduced LV systolic function (LVEF 45%). Mild RV dilation. Mild MR, mild TR. Electronically signed by : Vonda Valverde MD 03/24/2025 12:31:58
== END 2025-03-13 23:59 | disposition home or self-care (01) ==
LOC: RT 09:01
PROVIDERS: PCP Family Medicine; Visit Provider Physician Assistant
DX: I08.1 Rheumatic disorders of both mitral and tricuspid valves (principal); I50.20 Unspecified systolic (congestive) heart failure; R00.1 Bradycardia, unspecified; I48.91 Unspecified atrial fibrillation
CPT/HCPCS: 93306